=== PATIENT | male | born 1945 | race Caucasian/White ===

== ENCOUNTER 2020-12-15 05:55 | Day surgery (SDC) | payer MEDICARE ==
[2020-12-15] MEDS ORDERED: Povidone-Iodine 10% Soln 118.25 ML Bottle ONE (06:24)
[2020-12-15] MEDS: Nozin Nasal Sanitizer NASBOTH SCH ×2 (06:53→20:43)
[2020-12-15] MEDS ORDERED: Lactated Ringers 1,000 ML IV SCH (07:00)
[2020-12-15] MEDS ORDERED: ceFAZolin 2 GM in Premix Bag 1 BAG IV ONE (07:30)
[2020-12-15] MEDS ORDERED: Propofol 200 MG/20 ML SDV ONE (07:33)
[2020-12-15] MEDS ORDERED: Midazolam 1 MG/ML 2 ML SDV ONE (07:33)
[2020-12-15] MEDS ORDERED: fentaNYL 100 MCG/2 ML SDV ONE (07:33)
[2020-12-15] MEDS ORDERED: Lidocaine 1% 2 ML ONE (08:11)
[2020-12-15] MEDS ORDERED: Lactated Ringers 1,000 ML ONE (08:15)
[2020-12-15] MEDS ORDERED: Ondansetron 4 MG/2 ML SDV IVPUSH PRN (09:28)
[2020-12-15] MEDS ORDERED: Morphine 2 MG/ML SYRINGE IVPUSH PRN (09:28)
[2020-12-15] MEDS ORDERED: Docusate Sodium 100 MG Cap PO PRN (09:28)
[2020-12-15] MEDS ORDERED: Acetaminophen 325 MG Tab PO PRN (09:28)
[2020-12-15] MEDS ORDERED: ceFAZolin 1 GM in Sodium Chloride 0.9% 50 ML IV SCH (09:30)
[2020-12-15] MEDS: Acetaminophen/oxyCODONE 325-5 MG Tab PO PRN (11:03)
[2020-12-15] MEDS: Ketorolac 30 MG/ML SDV IVPUSH PRN (13:34)
[2020-12-15] MEDS: Sodium Chloride 0.9% 1,000 ML IV SCH ×2 (13:50→22:18)
--- NOTE | 2020-12-15 14:04 | CR ---
Knee 1V or 2V Lt CLINICAL HISTORY: Medial hemiarthroplasty FINDINGS: Patient is status post recent medial hemiarthroplasty. Components appear well seated. There is subcutaneous and intra-articular air. Impression: Status post left knee hemiarthroplasty
[2020-12-15] MEDS: ceFAZolin 1 GM in Premix Bag 1 BAG IV SCH (16:41)
[2020-12-15] MEDS: Acetaminophen/HYDROcodone 325-5 MG Tab PO PRN ×2 (18:45→22:27)
[2020-12-15] MEDS: Docusate Sodium 100 MG Cap PO SCH (20:43)
[2020-12-15] MEDS ORDERED: Nozin Nasal Sanitizer NASBOTH SCH (21:00)
[2020-12-16] MEDS: ceFAZolin 1 GM in Premix Bag 1 BAG IV SCH ×2 (00:10→08:39)
[2020-12-16] MEDS: Ketorolac 30 MG/ML SDV IVPUSH PRN (00:14)
[2020-12-16] MEDS: Acetaminophen/oxyCODONE 325-5 MG Tab PO PRN ×4 (02:25→16:51)
[2020-12-16] MEDS: Sodium Chloride 0.9% 1,000 ML IV SCH (06:57)
[2020-12-16] MEDS ORDERED: Pantoprazole 40 MG Tab.CR PO SCH (07:30)
[2020-12-16] MEDS: Nozin Nasal Sanitizer NASBOTH SCH (08:39)
[2020-12-16] MEDS: Docusate Sodium 100 MG Cap PO SCH (08:39)
[2020-12-16] MEDS ORDERED: Enoxaparin 30 MG/0.3 ML Syringe SUBCUT SCH (09:00)
[2020-12-16] MEDS ORDERED: LANSOPRAZOLE 15 MG PO SCH (09:00)
--- NOTE | 2020-12-16 16:07 | PCM.DCSUM1 ---
Discharge Summary - Hospital Course HPI Initial Comments: Isidoro 75 y/o male, left knee pain from osteoarthritis. Symptoms refractory to conservative management and injections, elected to undergo left partial knee arthroplasty of the medial compartment. Tolerated surgery well with no complications. Diagnosis: Stroke: No Modified Delmis Scale: No Symptoms at All Modified Delmis Scale Score: 0 - Discharge Data Discharge Date: 12/16/20 Discharge Disposition: Home, Self-Care 01 Condition: Good - Referral to Home Health Date of Face to Face Encounter: 12/16/20 Reason for Homebound Status: motivated to go home, independent with most ADLs Primary Care Physician: Yoshi Presley MD - Patient Summary/Data Operative Procedure(s) Performed: left knee, medial compartment, partial arthroplasty Consults: Consultations 12/15/20 09:28 Consult to Case Management/Allied Health Professional [CONS] Routine Comment: Physician Instructions: Service(s) to be Consulted: Case Management Reason for Consult: Plan for Discharge Special Instructions: s/p L partial knee arthroplasty, medial compartment anticipate d/c to home, possibly home health pending progress OT Evaluation and Treatment [CONS] Routine Please Evaluate and Treat. OT Reason for Consult: ADL's Special Instructions: s/p L partial knee arthroplasty, medial compartment This query below is only for informational purposes and is not editable. PT Evaluation and Treatment [CONS] Routine Please Evaluate and Treat. PT Reason for Consult: Post op Ortho Surgery Special Instructions: s/p L partial knee arthroplasty, medial compartment This query below is only for informational purposes and is not editable. PT Evaluation and Treatment [CONS] Routine Please Evaluate and Treat. PT Reason for Consult: Post op Ortho Surgery Knee Pending Discharge: Yes, 1- 2 days Special Instructions: Schedule first outpatient PT appointment in 3-5 day post discharge. This query below is only for informational purposes and is not editable. Hospital Course: Isidoro 75 y/o male, status post left partial knee arthroplasty of the medial compartment. Surgery went well with no complications. Patient had no acute events overnight. Remained hemodynamically stable throughout stay. Pain in the left knee has been well controlled today with oral medications. Patient denied nausea or emesis. Tolerated regular diet well. Has had a few episodes of hypertension, blood pressure has since been within normal limits. O2 in the low 90's on RA, no dyspnea on exertion. Patient denied subjective fever, chills, dyspnea, chest pain, palpitations, nor lightheadedness. Has been using incentive spirometer, > 1500. POD#1 HgB at 13.8. IV saline locked and Giles catheter discontinued this diallo pike Did have some drainage on the left knee dressing overnight. Dressing was changed this morning by orthopedic provider. Incision approximated, dried drainage on steris above incision. No surrounding erythema nor active drainage at incision. Mild warmth to touch of knee joint. Very mild swelling at knee. No pedal edema. Left calf is soft and supple. Dorsiflexion: 4+/5. Plantar flexion: 5/5. Has participated in physical therapy twice today. Ambulated 100+ ft with FWW and standby assist. Demonstrates ease getting left leg into and out of bed. Did complete stairs safely this afternoon. Patient reports pain is under control and feels confident in current ambulation abilities. Expressed desire to go home this afternoon. Does have support from at home. - Patient Instructions Diet: Usual Diet as Tolerated Activity: Apply Ice, Full Weight Bearing Driving: Do Not Drive (until off of narcotic pain medication ) Showering/Bathing: Shower in AM Wound/Incision Care: Keep Operative Site/Wound Site Clean and Dry Notify Provider of: Fever, Increased Pain, Swelling and Redness, Drainage - Discharge Plan *PRESCRIPTION DRUG MONITORING PROGRAM REVIEWED*: Yes *COPY OF PRESCRIPTION DRUG MONITORING REPORT IN PATIENT [place]: Not Applicable Prescriptions/Med Rec: Acetaminophen/oxyCODONE [Percocet 325-5 MG] 1 - 2 each PO Q6HR PRN #30 tab PRN Reason: Pain Home Medications: Home Meds Lansoprazole [Prevacid] 15 mg PO DAILY 12/15/20 [History] Acetaminophen/oxyCODONE [Percocet 325-5 MG] 1 - 2 each PO Q6HR PRN #30 tab 12/16/20 [Rx] Oxygen Therapy Mode: Room Air Patient Handouts: Preventing Problems After Surgery, Preventing Constipation After Surgery, Partial Knee Replacement, Care After Referrals: Sushila Zaidi PA [Ordering Only Provider] - 12/30/20 11:00 am (Please arrive 15 minutes early to register for your apoointment. [place] at the ER desk.) - Discharge Summary/Plan Comment DC Time >30 min.: No Discharge Summary/Plan Comment: * Dressing changed today by orthopedic provider. May shower tomorrow morning. Leave steristrips on. Does not need dressing over the incision unless active drainage or uncomfortable against clothes. Gauze and medical tape provided to patient. Education provided on SSI; patient expressed understanding and will call if any concerns with incision or infection * Pain control: 5mg-325mg Percocet, 1-2 tabs q6 hrs prn for pain, dispense #30. Sent to pharmacy per patients request. May take NSAIDs as needed for breakthrough pain * History of constipation with opioids; encouraged to continue stool softener or fiber supplement * DVT/VTE prophylaxis: educated patient on warning signs of DVT/VTE, expressed understanding and follow up parameters. Educated to take 1 aspirin BID for DVT/VTE prophylaxis * Continue with Nozin BID * Patient outpatient PT order faxed to [facility] * Patient to follow up with orthopedic clinic in 2 weeks. Encouraged to call with any concerns or questions that arise prior to scheduled apt * Patient agreeable and expressed understanding of the above plan - General Info Date of Service: 12/16/20 Admission Dx/Problem (Free Text: left knee osteoarthritis Functional Status: Reports: Pain Controlled, Tolerating Diet, Ambulating (with FWW ), Urinating, Incentive Spirometry - Review of Systems General: Reports: No Symptoms HEENT: Reports: No Symptoms Pulmonary: Reports: No Symptoms Cardiovascular: Reports: No Symptoms Gastrointestinal: Reports: Constipation Genitourinary: Reports: No Symptoms Musculoskeletal: Reports: Joint Pain (L knee ), Joint Swelling (L knee ) Skin: Reports: No Symptoms Neurological: Reports: No Symptoms Psychiatric: Reports: No Symptoms - Patient Data Vitals - Most Recent: Last Vital Signs Temp 98.1 F 12/16/20 15:03 Pulse 67 12/16/20 15:03 Resp 18 12/16/20 15:03 BP 154/59 H 12/16/20 15:03 Pulse Ox 94 L 12/16/20 15:03 Weight - Most Recent: 184 lb I&O - Last 24 hours: Intake & Output 12/16/20 12/16/20 12/16/20 06:59 14:59 22:59 Intake Total 1591 2476 Output Total 1350 765 Balance 241 1711 Lab Results - Last 24 hrs: Laboratory Results - last 24 hr 12/16/20 Range/Units 05:40 WBC 6.8 (4.5-11.0) K/uL RBC 4.27 L (4.30-5.90) M/uL Hgb 13.8 D (12.0-15.0) g/dL Hct 40.0 (40.0-54.0) % MCV 94 (80-98) fL MCH 32 H (27-31) pg MCHC 35 (32-36) % Plt Count 106 L (150-400) K/uL Med Orders - Current: Current Medications Acetaminophen (Acetaminophen 325 Mg Tab) 650 mg PO Q4H PRN PRN Reason: Pain/Fever Hydrocodone Bitart/Acetaminophen (Acetaminophen/Hydrocodone 325-5 Mg Tab) 1 tab PO Q4H PRN PRN Reason: Pain (mild 1-3) Last Admin: 12/15/20 22:27 Dose: 1 tab Documented by: Bandage/Support Products (Nozin Nasal Compliance Manager) 1 applic NASBOTH BID [facility] Stop: 12/21/20 21:01 Last Admin: 12/16/20 08:39 Dose: 1 swab Documented by: Docusate Sodium (Docusate Sodium 100 Mg Cap) 100 mg PO BID [facility] Last Admin: 12/16/20 08:39 Dose: 100 mg Documented by: Enoxaparin Sodium (Enoxaparin 30 Mg/0.3 Ml Syringe) 30 mg SUBCUT DAILY [facility] Last Admin: 12/16/20 08:43 Dose: 30 mg Documented by: Sodium Chloride (Normal Saline) 1,000 mls @ 125 mls/hr IV ASDIRECTED [facility] Last Admin: 12/16/20 06:57 Dose: 125 mls/hr Documented by: Ketorolac Tromethamine (Ketorolac 30 Mg/Ml Sdv) 30 mg IVPUSH Q8H PRN PRN Reason: Breakthrough Pain Stop: 12/20/20 09:29 Last Admin: 12/16/20 00:14 Dose: 30 mg Documented by: Morphine Sulfate (Morphine 2 Mg/Ml Syringe) 1 mg IVPUSH Q1H PRN PRN Reason: Breakthrough Pain Last Admin: 12/16/20 01:22 Dose: 1 mg Documented by: Ondansetron HCl (Ondansetron 4 Mg/2 Ml Sdv) 4 mg IVPUSH Q4H PRN PRN Reason: Nausea/Vomiting Oxycodone/Acetaminophen (Acetaminophen/Oxycodone 325-5 Mg Tab) 1 - 2 tab PO Q4H PRN PRN Reason: Pain Last Admin: 12/16/20 12:40 Dose: 1 tab Documented by: Pantoprazole Sodium (Pantoprazole 40 Mg Tab.Cr) 40 mg PO ACBREAKFAST [facility] Last Admin: 12/16/20 07:01 Dose: 40 mg Documented by: Discontinued Medications Docusate Sodium (Docusate Sodium 100 Mg Cap) 100 mg PO BID PRN PRN Reason: Constipation Fentanyl (Fentanyl 100 Mcg/2 Ml Sdv) Confirm Administered Dose 100 mcg .ROUTE .STK-MED ONE Stop: 12/15/20 07:34 Cefazolin Sodium/Dextrose 2 gm (/ Premix) 50 mls @ 100 mls/hr IV ONETIME ONE Stop: 12/15/20 07:59 Last Admin: 12/15/20 07:46 Dose: 100 mls/hr Documented by: Lactated Ringer's (Ringers, Lactated) 1,000 mls @ 75 mls/hr IV ASDIRECTED [facility] Last Admin: 12/15/20 07:02 Dose: 75 mls/hr Documented by: Lidocaine HCl (Xylocaine-Mpf 1%) Confirm Administered Dose 2 mls @ as directed .ROUTE .STK-MED ONE Stop: 12/15/20 08:12 Lactated Ringer's (Ringers, Lactated) Confirm Administered Dose 1,000 mls @ as directed .ROUTE .STK-MED ONE Stop: 12/15/20 08:16 Cefazolin Sodium/Dextrose 1 gm (/ Premix) 50 mls @ 100 mls/hr IV Q8H [facility] Stop: 12/16/20 08:29 Last Admin: 12/16/20 08:39 Dose: 100 mls/hr Documented by: Midazolam HCl (Midazolam 1 Mg/Ml 2 Ml Sdv) Confirm Administered Dose 2 mg .ROUTE .STK-MED ONE Stop: 12/15/20 07:34 Povidone Iodine (Povidone-Iodine 10% Soln 118.25 Ml Bottle) Confirm Administered Dose 1 ml .ROUTE .STK-MED ONE Stop: 12/15/20 06:25 Last Admin: 12/15/20 08:35 Dose: 15 ml Documented by: Propofol (Propofol 200 Mg/20 Ml Sdv) Confirm Administered Dose 200 mg .ROUTE .STK-MED ONE Stop: 12/15/20 07:34 - Exam Quality Assessment: Reports: DVT Prophylaxis General: Reports: Alert, Oriented, Cooperative, No Acute Distress Extremities: Normal Capillary Refill, Joint Swelling (mild, left knee ), Leg Pain (left ), Limited Range of Motion, Increased Warmth (mild, left knee ) Skin: Reports: Dry, Intact Wound/Incisions: Reports: Dressing Dry and Intact, No Drainage Neurological: Reports: No New Focal Deficit Psy/Mental Status: Reports: Alert, Normal Affect, Normal Mood
--- NOTE | 2020-12-22 16:40 | PCM.EKG ---
#1 Interpretation EKG Date: 12/15/20 Time: 07:00 Rhythm: NSR Rate (Beats/Min): 55 [place]: Normal P-Wave: Present QRS: Normal ST-T: Other (Anterior J-point elevation) QT: Normal
--- NOTE | 2020-12-29 12:28 | OR ---
DATE OF PROCEDURE: 12/15/2020 SURGEON: Jakub Monge MD POSTOPERATIVE DIAGNOSIS: Osteoarthritis of left knee, medial compartment. POSTOPERATIVE DIAGNOSIS: Osteoarthritis of left knee, medial compartment. PROCEDURE PERFORMED: Left medial unicompartmental arthroplasty using [employer] ZUK components with a size E femur, 4 tibia, and 8 mm polyethylene. CIVIL RIGHTS INVESTIGATOR: EARNEST Dorsey ANESTHESIA: Spinal with sedation. INDICATIONS: Lauro is a very pleasant 75-year-old gentleman with a history of progressive pain in his left knee for the past couple of years. He has failed conservative treatment. X-rays reveal medial compartment collapse with well-preserved lateral and patellofemoral joints. He now presents for a left medial unicompartmental arthroplasty. Risks, benefits, and potential complications of the procedure were discussed. DESCRIPTION OF PROCEDURE: After adequate anesthesia was obtained, the patient was placed supine with a tourniquet about the left upper thigh. The left leg was prepped and draped in a sterile fashion. The leg was exsanguinated and tourniquet inflated to 300 mmHg pressure. A longitudinal incision was made just slightly medial of midline and carried down to the subcutaneous tissues, and a medial parapatellar arthrotomy was made from the superior pole of the patella just short of the VMO insertion down to the tibial tubercle. The anterior horn of the medial meniscus was excised. Retractor was placed. The knee was flexed, and the articular surface of the femoral condyle revealed complete articular cartilage loss. An oscillating saw was used to remove the anterior lip of the tibia. The leg was extended, and the extramedullary alignment jig was placed. This was aligned and secured. A distal femoral cut was made. This portion of the guide was removed. The knee was flexed, and the proximal tibia was resected using a combination of oscillating and reciprocating saws. The guide was removed. A portion of the tibia was excised along with the remaining medial meniscus. The femur was sized to an E component. The cutting jig was secured. Drill holes and remaining cuts were then made. The guide was removed, and the tibia was then sized to a #4 component. The #4 trial was tapped into position and secured with the pin, and drill holes were made for the pegs. A trial was then done with an 8 mm insert which provided 2 mm of gap in both flexion and extension with good balance. The trial was removed. The knee was fully irrigated with pulse lavage. Bone surfaces were dried, and the component was cemented in place. Excess cement was removed. The knee was held in full extension with an 8 mm insert and the 2 mm spacing gap as the cement cured. The knee was run through a trial of flexion and extension once again. The trial insert was removed. The final polyethylene was snapped into position. The knee was irrigated with pulse lavage followed by a dilute Betadine solution and then pulse lavage once again. The capsule was closed with a running #2 Ethibond. Skin was closed with 2-0 Vicryl and a running 3-0 Monocryl. Steri-Strips were applied. Sterile dressing with light compression was placed. The patient tolerated the procedure well. There were no complications. He was taken from the operating room in stable condition. Jakub Monge MD /[id number]
== END 2020-12-16 17:57 | disposition home or self-care (01) ==
LOC: JP.SDS 05:55 → JP.MS 09:28 → JP.SDS 12-16 17:57
PROVIDERS: ATTEND Specialist
DX: M17.12 Unilateral primary osteoarthritis, left knee (principal); M25.562 Pain in left knee; E66.9 Obesity, unspecified; Z68.26 Body mass index [BMI] 26.0-26.9, adult; Z79.899 Other long term (current) drug therapy
CPT/HCPCS: 27446; 36415; 73560; 80053; 85027; 93005; 97110; 97116; 97161; 97165; 97530; 97535; A9270; C1713; C1776; J0690; J1650; J1885; J2250; J2270; J2704; J3010; J7030; J7120